=== PATIENT | female | born 1965 | race Caucasian/White ===

== ENCOUNTER 2023-07-20 18:05 | Emergency (ER) | payer OTHER, SELFPAY ==
[2023-07-20 18:14] VITALS: BP 138/94; BMI 34.2
[2023-07-20 18:27] LABS: % Basophils 0.5 % (0-2); % Eosinophils 1.8 % (0-6); % Immature Granulocytes 0.3 % (0-0.5); % Lymphocytes 13.5 % (20.5-51.1); % Monocytes 8.1 % (1.7-9.3); % Neutrophils 75.8 % (42.2-75.2); Absolute Basophils 0.1 10^3/uL (0-0.2); Absolute Eosinophils 0.2 10^3/uL (0-0.7); Absolute Lymphocytes 1.3 10^3/uL (1.2-3.4); Absolute Monocytes 0.8 10^3/uL (0.1-0.6); Absolute Neutrophils 7.2 10^3/uL (1.4-6.5); Hematocrit 39.6 % (37.0-47.0); Hemoglobin 13.3 g/dL (12.0-16.0); Mean Corp Hgb Conc. 33.6 g/dL (33.0-37.0); Mean Corpuscular Hgb 30.3 pg (27.0-31.0); Mean Corpuscular Volume 90.2 fL (81.0-99.0); Mean Platelet Volume 11.4 fL (7.4-10.4); Nucleated Red Blood Cells % 0 %; Platelet Count 207 10^3/uL (130-400); Red Blood Cell Count 4.39 10^6/uL (4.20-5.40); Red Cell Dist. Width 12.9 % (11.5-14.5); White Blood Cell Count 9.5 10^3/uL (4.8-10.8)
[2023-07-20 18:49] LABS: ALT (SGPT) 23 U/L (0-35); AST (SGOT) 31 U/L (14-36); Albumin 4.5 g/dl (3.5-5.0); Alkaline Phosphatase 83 U/L (38-126); Blood Urea Nitrogen 16 mg/dl (7-17); Calcium 9.9 mg/dl (8.4-10.2); Carbon Dioxide 27 mmol/L (22-30); Chloride 106 mmol/L (98-107); Estimated Creatinine Clearance 66 ml/min; Glucose 45 mg/dl (70-99); Potassium 4.3 mmol/L (3.5-5.1); Sodium 137 mmol/L (135-145); Total Bilirubin 0.7 mg/dl (0.2-1.3); Total Protein 6.8 g/dl (6.3-8.2); Troponin I < 0.012 ng/ml; eGFR > 60.00
[2023-07-20 18:53] VITALS: BP 120/88
[2023-07-20 18:58] LABS: Glucose - Point of Care 120 mg/dl (70-99)
--- NOTE | 2023-07-20 18:59 | EDRN ---
glucose rechecked and was 120, pt states she ate pretzels in waiting area when she was waiting.
[2023-07-20 19:43] VITALS: BP 115/85
[2023-07-20 20:00] VITALS: BP 109/78
[2023-07-20 20:00] LABS: Glucose - Point of Care 160 mg/dl (70-99)
--- NOTE | 2023-07-20 21:09 | ED.GENMED ---
History of Present Illness
General
Chief Complaint: Chest Pain
Source: patient
Time Seen by Provider: 07/20/23 19:57
Travel History
Have you had any contact with someone who has COVID-19?: No
Do you have any symptoms of coronavirus? Fever > 100 degrees, chills, cough, shortness of breath, sore throat, loss of taste or smell, muscle aches, or headache?: No
History of Present Illness
History of Present Illness:
58-year-old female presents to the emergency room complaining of palpitations. The triage note states she had left arm pain the patient does not endorse this for me. Currently she is symptom-free. Patient states she had been outside working in
her yard quite a while. She did not feel like it was particularly hot. However at the end of her shoulders she began feeling a car was beating strongly. She did not like it was beating rapidly but rather HPV was quite strong. She did not have
any diaphoresis. She denies shortness of breath. Symptoms persisted about 45 minutes. She in that time she drank some glasses of water and also ate some carrots and fruit. This did not make her feel any better. She decided to come to the
emergency room. While in the emergency room her symptoms seem to go away. At the time my evaluation she is asymptomatic. She has no known history of hypoglycemia. Does not take any medication for diabetes.
Past History
Past History
ED Past Medical History: None
ED Past Surgical History: Orthopedic and Other (lumpectomy)
Social History
Tobacco: Non-smoker
Alcohol: Occasional
Personal:
Living: with family
Employment: Employed ([employer])
Phy Exam
Physical Exam
Physical Exam:
General: Awake, Alert, Oriented X3. No acute distress.
Vitals: unremarkable
Head: Atraumatic
Eyes: Pupils equal, EOMI
Throat: Airway intact, no exudates
Neck: Trachea midline
Lungs: Clear and equal b/l
Heart: Regular rate, no murmurs
Abd: Soft, Nontender, No pulsatile mass
Neuro: Nonfocal
Skin: Warm, dry, no rash
Extremities: pulses equal b/l, no edema
Scores
Heart Score for Chest Pain Patients
STEMI patient?: No
History: Slightly or Non-Suspicious
ECG: Normal
Age: >45 - <65 years
Risk Factors: No Risk Factors
Troponin: </= Normal Limit
Heart Score for Chest Pain Patients: 1
Heart Score Risk: 2.5% MACE over next 6 weeks
Course
Orders/Labs/Results
Orders:
Orders
07/20/23 18:06
Electrocardiogram (*1) Urgent
Reason for Study: Chest Pain
EKG- Treatment ONCE
07/20/23 18:18
Complete Blood Count/With Diff Urgent
Comprehensive Metabolic Panel Urgent
Troponin I Urgent
CXR2 [CR Chest - 2 Views ] Urgent
Comment:
Reason For Exam: chest pain
Abnormal Lab Results
07/20/23 07/20/23 07/20/23
18:18 18:55 19:58
MPV 11.4 H fL
(7.4-10.4)
Absolute Neuts (auto) 7.2 H 10^3/uL
(1.4-6.5)
Absolute Monos (auto) 0.8 H 10^3/uL
(0.1-0.6)
Neutrophils % 75.8 H %
(42.2-75.2)
Lymphocytes % 13.5 L %
(20.5-51.1)
Glucose 45 L* mg/dl
(70-99)
POC Glucose 120 H mg/dl 160 H mg/dl
(70-99) (70-99)
07/20/23 18:18
07/20/23 18:18
Vital Signs
Initial and Last Documented VS:
Initial Vital Signs
Temp Pulse Resp BP Pulse Ox
98 F 84 16 138/94 98
07/20/23 18:14 07/20/23 18:14 07/20/23 18:14 07/20/23 18:14 07/20/23 18:14
Last Documented Vital Signs
Temp Pulse Resp BP Pulse Ox
98 F 84 14 109/78 96
07/20/23 18:14 07/20/23 20:15 07/20/23 20:15 07/20/23 20:00 07/20/23 20:15
MDM/Problems Addressed
Differential Diagnosis Includes:
ACS, PVCs, PACs, sinus tachycardia
MDM/Problems Addressed:
Patient had an episode of a strong heartbeat after spending a bit of time in the yard gardening. She does not feel like she was particularly overheated but nonetheless she began feeling symptoms. Her workup here shows normal sinus rhythm on her
EKG. Her glucose was found to be 45 on the BMP. She had eaten some snacks in the waiting room after the blood was drawn an Accu-Chek that was normal. It is possible to symptoms that she experienced earlier today was related to hypoglycemia
however she does not take any oral hypoglycemics. She does not have diabetes. Patient stable for discharge home. Recommend follow-up with her primary care provider and cardiology as an outpatient.
*Pulse Oximetry
Patient hypoxic: no
*EKG
Interpreted by ED Provider?: Yes
Interpretation: normal
Heart Rate: 86
Rate: normal
Rhythm: sinus
[place]: normal axis
Interval: normal interval
QRS Pattern: normal QRS
Ischemia: no ischemia
*Plumber Gasfitter Interpretation
Rate: normal
Interpretation: normal
Rhythm: sinus
*Critical Care Note
Total Time (30-74mins, 75-104mins- exclusive of procedures): Not Applicable
ED Attending Note
-
Portions of this chart may have been created with voice recognition software.� Occasional wrong word or��sound alike� substitutions may have occurred due to the inherent limitations of voice recognition software.
Discharge Plan
Departure
Patient Disposition: Home (Routine Discharge)
Date of Disposition: 07/20/23
Time of Disposition: 21:10
Patient with high blood pressure during this ER visit?: No
Condition: Good
Discharge Problem:
Palpitations
Instructions: Palpitations ED
Prescriptions:
No Action
cyclobenzaprine 10 MG tablet
10 mg PO BIDPRN PRN (Reason: muscle tightness/spasm) Qty: 20 0RF
Referrals:
Yoli Correa, DO [Family Provider] -
Minerva Cazares DO [Active] -
Interventions
Interventions:
*Risk Screen - Suicide Last Done: 07/20/23 18:14
*General Assessment Last Done: 07/20/23 20:02
*Neglect/Abuse Screening Last Done: 07/20/23 18:14
ED- Fall Risk Assessment Last Done: 07/20/23 18:14
*ED COVID-19 Vaccine History Last Done: 07/20/23 20:02
*Nursing Disposition Last Done: 07/20/23 21:15
ED- Cardiac Assessment Last Done: 07/20/23 20:02
Discharge Date and Time
Discharge Date/Time: 07/20/23 21:15
Print Language: KINYARWANDA
== END 2023-07-20 21:15 | disposition home or self-care (01) ==
LOC: EMR 18:05
PROVIDERS: Emergency Medicine; EMERGENCY PHYSICIAN Emergency Medicine; FAMILY PHYSICIAN Internal Medicine
DX: R00.2 Palpitations (principal); R07.9 Chest pain, unspecified; Z88.6 Allergy status to analgesic agent; Z88.1 Allergy status to other antibiotic agents; Z88.5 Allergy status to narcotic agent; Z88.2 Allergy status to sulfonamides; Z88.8 Allergy status to other drugs, medicaments and biological substances
CPT/HCPCS: 99283; 71046; 80053; 82962; 84484; 85025; 93005

== ENCOUNTER → 2023-10-18 09:06 | Outpatient (REF) | payer OTHER, SELFPAY | LOC: RCS 09:06 | PROVIDERS: ATTENDING PHYSICIAN Internal Medicine Cardiovascular Disease; FAMILY PHYSICIAN Internal Medicine | DX: R06.02 Shortness of breath (principal) | CPT/HCPCS: 93017; 93350 ==

== ENCOUNTER → 2024-10-20 10:19 | Outpatient (REF) | payer OTHER, SELFPAY | LOC: RAD 10:19 | PROVIDERS: ATTENDING PHYSICIAN Obstetrics & Gynecology Gynecology | DX: R10.2 Pelvic and perineal pain (principal) | CPT/HCPCS: 76830; 76856 ==

== ENCOUNTER 2025-01-21 08:41 | Emergency (ER) | payer OTHER, SELFPAY ==
[2025-01-21 08:49] VITALS: BP 113/84
[2025-01-21 09:08] VITALS: BP 128/86
--- NOTE | 2025-01-21 09:11 | ED.GENMED ---
History of Present Illness
General
Chief Complaint: Cardiac Symptoms
Time Seen by Provider: 01/21/25 08:52
History of Present Illness
History of Present Illness:
59-year-old female without significant past medical history presenting to the emergency department for palpitations and dizziness. Patient notes symptoms started about an hour prior to arrival. Patient went to the GI office today. She initially
felt okay and then upon leaving the office started to feel unwell. She started to drive and symptoms worsened so she returned back, went back to the office and they noticed that she was in SVT. They tried vagal maneuvers without relief. Patient
notes that she has had similar symptoms in the past, however reports that there was no abnormality ever detected. Reports history of Holter monitor that was negative. Reports chest pressure, lightheadedness, agitation. No additional symptoms
reported at this time
Past History
Past History
ED Past Medical History: None
ED Past Surgical History: Orthopedic and Other (lumpectomy)
Social History
Tobacco: Non-smoker
Alcohol: Occasional
Personal:
Living: with family
Employment: Employed ([employer])
Phy Exam
Physical Exam
Physical Exam:
General: Well-appearing, no clinical signs of dehydration, nontoxic and in no acute distress
HEENT: protecting airway
Neck: appears supple
CV: Tachycardic, regular rhythm, no evidence of cyanosis
Resp: No accessory muscle use, no increased work of breathing, lungs clear to auscultation bilaterally
Abd: No distention
Extremities: No deformities, no swelling
Neuro: alert, no focal neurologic deficit
: deferred
Rectal: deferred
Psych: Normal affect
Skin: Intact
Course
Orders/Labs/Results
Orders:
Orders
01/21/25 08:47
Electrocardiogram (*1) Urgent
Reason for Study: Bradycardia / Tachycardia
EKG- Treatment ONCE
01/21/25 08:56
Adenosine [Adenocard] 18 mg .ROUTE .STK-MED ONE
01/21/25 08:59
EKG [Electrocardiogram (*1)] Urgent
Reason for Study: Bradycardia / Tachycardia
EKG- Treatment ONCE
01/21/25 09:07
Complete Blood Count/With Diff Urgent
Comprehensive Metabolic Panel Urgent
Abnormal Lab Results
01/21/25
09:07
Hct 47.2 H %
(37.0-47.0)
MCHC 32.6 L g/dL
(33.0-37.0)
MPV 11.7 H fL
(7.4-10.4)
Absolute Monos (auto) 0.7 H 10^3/uL
(0.1-0.6)
Carbon Dioxide 21 L mmol/L
(22-30)
BUN 19 H mg/dl
(7-17)
Glucose 174 H mg/dl
(70-99)
AST 51 H U/L
(14-36)
ALT 39 H U/L
(0-35)
01/21/25 09:07
01/21/25 09:07
Vital Signs
Initial and Last Documented VS:
Initial Vital Signs
Temp Pulse Resp BP
98.9 F 200 24 113/84
01/21/25 08:49 01/21/25 08:49 01/21/25 08:49 01/21/25 08:49
Last Documented Vital Signs
Temp Pulse Resp BP Pulse Ox
98.9 F 88 22 123/88 97
01/21/25 08:49 01/21/25 10:13 01/21/25 08:52 01/21/25 10:00 01/21/25 10:00
MDM/Problems Addressed
MDM/Problems Addressed:
59-year-old female without significant past medical history presenting for palpitations, dizziness, chest pressure which started an hour prior to arrival. Vital signs on arrival significant for tachycardia.
On exam, patient is in no acute distress, however anxious and uncomfortable secondary to her symptoms. Patient noted to be in profound tachycardia, greater than 200 with EKG confirming SVT. Suspect etiology of symptoms. Patient arrives from
outpatient doctor's office, where they also noted SVT, did not break with vagal maneuvers. For this reason, will obtain laboratory analysis and administer adenosine
09:10 - Patient converted after 1 dose of adenosine. EKG confirms sinus rhythm. Patient notes that she has seen Dr. Evans in the past. Will consult cardiology for outpatient follow-up.
10:20 - Labs are unremarkable and patient remained stable. Did discuss with cardiology, recommend Toprol 25 mg daily with subsequent follow-up. At this time feel that she is stable for discharge with close interval cardiac follow-up. Return
precautions discussed and patient verbalized understanding
*Pulse Oximetry
SaO2: 100
Oxygen Mode of Delivery: Room air
Patient hypoxic: no
*EKG
Interpreted by ED Provider?: Yes
EKG Intrepretation Date: 01/21/25
EKG Intrepretation Time: 09:25
Interpretation: abnormal
Comparison EKG: changes noted
Heart Rate: 208
Rate: tachycardiac
Rhythm: SVT
[place]: normal axis
QRS Pattern: normal QRS
Ischemia: non-specific ST changes
*Critical Care Note
Total Time (30-74mins, 75-104mins- exclusive of procedures): 35
comment:
The high probability of a clinically significant, sudden or life threatening deterioration of the cardiac system(s) required my full and direct attention, intervention and personal management. The aggregate critical care time was 35 minutes. This
time is in addition to time spent performing reported procedures but includes the following:
[x] Data Review and interpretation
[x] Patient assessment and monitoring of vital signs
[x] Documentation
[x] Medication orders and management
ED Attending Note
-
Portions of this chart may have been created with voice recognition software.� Occasional wrong word or��sound alike� substitutions may have occurred due to the inherent limitations of voice recognition software.
Discharge Plan
Departure
Patient with high blood pressure during this ER visit?: No
Condition: Good
Discharge Problem:
SVT (supraventricular tachycardia)
Instructions: Supraventricular tachycardia (SVT)
Prescriptions:
No Action
cyclobenzaprine 10 MG tablet
10 mg PO BIDPRN PRN (Reason: muscle tightness/spasm) Qty: 20 0RF
Referrals:
Aroldo Evans MD [Active, Cardiology]
Yoli Correa DO [Family Provider, Internal Medicine]
Activity Restrictions/Additional Instructions:
You were seen in the emergency department for elevated heart rate and palpitations
You were found to have a rhythm called supraventricular tachycardia. The rhythm improved after a medication called adenosine. We recommend that you follow-up with your law clerk.
Return to the emergency department for any worsening of your symptoms, or any development of chest pain, difficulty breathing, abdominal pain with persistent vomiting and inability to tolerate food or liquid by mouth (concern for dehydration),
weakness, headache or confusion, fever greater than 100.4, or any additional symptoms that are concerning to you.
Thank you for choosing [facility].
Interventions
Interventions:
*Risk Screen - Suicide Last Done: 01/21/25 09:16
*General Assessment Last Done: 01/21/25 09:16
*Neglect/Abuse Screening Last Done: 01/21/25 09:16
ED- Pulmonary Assessment Last Done: 01/21/25 09:18
ED- Cardiac Assessment Last Done: 01/21/25 09:18
Discharge Date and Time
Print Language: YAKUT
[2025-01-21 09:16] VITALS: BMI 29.3
[2025-01-21 09:27] LABS: Hematocrit 47.2 % (37.0-47.0); Hemoglobin 15.4 g/dL (12.0-16.0); Mean Corp Hgb Conc. 32.6 g/dL (33.0-37.0); Mean Corpuscular Volume 94.2 fL (81.0-99.0); Nucleated Red Blood Cells % 0 %; Platelet Count 273 10^3/uL (130-400); Red Cell Dist. Width 12.7 % (11.5-14.5)
[2025-01-21 09:52] LABS: ALT (SGPT) 39 U/L (0-35); AST (SGOT) 51 U/L (14-36); Albumin 5.0 g/dl (3.5-5.0); Alkaline Phosphatase 99 U/L (38-126); Blood Urea Nitrogen 19 mg/dl (7-17); Calcium 9.6 mg/dl (8.4-10.2); Carbon Dioxide 21 mmol/L (22-30); Chloride 107 mmol/L (98-107); Estimated Creatinine Clearance 63 ml/min; Glucose 174 mg/dl (70-99); Potassium 4.0 mmol/L (3.5-5.1); Sodium 137 mmol/L (135-145); Total Protein 7.6 g/dl (6.3-8.2); eGFR > 60.00
[2025-01-21 10:00] VITALS: BP 123/88
== END 2025-01-21 10:39 | disposition home or self-care (01) ==
LOC: EMR 08:41
PROVIDERS: EMERGENCY PHYSICIAN Student in an Organized Health Care Education/Training Program; FAMILY PHYSICIAN Internal Medicine
DX: I47.10 Supraventricular tachycardia, unspecified (principal)
CPT/HCPCS: 99291; 80053; 85025; 93005; J0153

== ENCOUNTER 2025-02-26 10:11 | Day surgery (SDC) | payer OTHER, SELFPAY ==
[2025-02-26] VITALS (8 sets, daily range): BP systolic 103–153; BP diastolic 76–90; BMI 27.3
[2025-02-26 10:44] LABS: Hematocrit 39.5 % (37.0-47.0); Hemoglobin 13.5 g/dL (12.0-16.0); Mean Corp Hgb Conc. 34.2 g/dL (33.0-37.0); Mean Corpuscular Volume 89.8 fL (81.0-99.0); Platelet Count 191 10^3/uL (130-400); Red Cell Dist. Width 12.0 % (11.5-14.5)
[2025-02-26 11:25] LABS: ALT (SGPT) 18 U/L (0-35); AST (SGOT) 23 U/L (14-36); Albumin 4.6 g/dl (3.5-5.0); Alkaline Phosphatase 72 U/L (38-126); Blood Urea Nitrogen 14 mg/dl (7-17); Calcium 9.7 mg/dl (8.4-10.2); Carbon Dioxide 29 mmol/L (22-30); Chloride 106 mmol/L (98-107); Estimated Creatinine Clearance 80 ml/min; Glucose 98 mg/dl (70-99); Magnesium 2.0 mg/dl (1.6-2.3); Potassium 3.7 mmol/L (3.5-5.1); Sodium 138 mmol/L (135-145); Total Protein 7.2 g/dl (6.3-8.2); eGFR > 60.00
--- NOTE | 2025-02-26 12:50 | ITS.CL.ABL ---
Asphalt Plant Laborer - Ablation
Ablation
Procedure Report:
ELECTROPHYSIOLOGIC STUDY AND POSSIBLE ABLATION
Procedure Date: February 26, 2025
Primary Care Provider: Dr. Yoli Correa
Primary faith doctor: Dr. Aroldo Evans
INDICATION: Supraventricular tachycardia, palpitations
HISTORY: Symptomatic recurrent supraventricular tachycardia
'Time-out' was called and confirmed.
Presenting rhythm: Sinus rhythm
PROCEDURE:
Ultrasound Guidance with real-time visualization of needle insertion and vessel patency performed by mo for femoral venous Vascular Access.
Under real-time US guidance, the needle was advanced with negative pressure into the vein. The needle was seen entering the vessel lumen with a good return of dark red flow, the syringe was removed, non-pulsatile, dark red blood low was noted and
the wire was passed without difficulty, then the needle was removed. US confirmed the wire was in the vein, not going into an artery,
Images were taken and saved for the patient's permanent record. Imaging findings typical femoral venous anatomy. Direct visualization of needle puncture into the femoral vein was observed and recorded.
Multipolar recording catheters were positioned at the HRA, RVA, His bundle and CS (for left atrial recording/mapping).
Mapping, recording and pacing were performed from these sites.
Baseline measurements were recorded and analyzed. Antegrade and retrograde AV jonhathan Wenckebach CLs were obtained.
Programmed electrical stimulation was performed. Premature extrastimuli were delivered from the HRA, CS and RVA catheters.
Burst atrial pacing was also performed from HRA and LA (CS) sites.
In the baseline state there is evidence of dual AV johnathan physiology and single AV johnathan echoes but no inducible arrhythmia.
Three-dimensional electroanatomical mapping was utilized.
Based on her ECG and the presence of dual AV johnathan physiology and single AV johnathan echoes AV johnathan slow pathway mapping was performed with 4 mm tip irrigated contact sensing catheter map the AV johnathan slow pathway. Of note there is a large funnel
entrance to the coronary sinus ostium. Catheter stability at the targeted site was difficult. A long sheath, Tillman ramp, was utilized to assist in stability. Delivery of RF energy at the proposed target sites failed to induce any junctional
rhythms. After several attempts it was decided to begin isoproterenol infusion and try to induce a clinical arrhythmia.
Isoproterenol infusion was begun and uptitrated. Programmed electrical stimulation on isoproterenol infusion is able to induce narrow QRS complex tachycardia at 350 ms.
Evidence for typical AV Johnathan Reentry as the tachycardia diagnosis included: (1) A concentric midline atrial activation sequence during SVT, (2) ventricular pacing from the RVA showed earliest retrograde atrial activation to be midline, matching
that seen during SVT, (3) Atrial activation during SVT began within the first 70ms of the QRS complex excluding AVRT and making AT unlikely, (4) Initiation of SVT was dependent on a critical AH interval (slow pathway engagement), (5) Ventricular
pacing at a CL 20-30 ms faster than the SVT CL during the SVT demonstrated advancement of the atrial electrogram to the pacing CL repeatedly terminating the SVT.
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 It is not AV reentry tachycardia. It is very unlikely to be an atrial tachycardia.
The INcubes multipolar mapping catheter was positioned through an Agilis sheath and high density three-dimensional electroanatomical mapping was then performed outlining the likely area of the AV johnathan slow pathway which is just slightly
inferior to where the previous lesions were given.
Delivery of RF energy through the irrigated tip catheter at this location resulted in accelerated junctional rhythm with intact VA conduction.
Retrograde junctional - atrial conduction was evaluated during RF application and at no point was VA delay or block observed.
PES stimulation was repeated both in the baseline state and on isoproterenol and there was no evidence of AV johnathan slow pathway. No sustained SVT was induced, a contrast to the pre-ablation situation.
COMPLICATIONS: None
SUMMARY:
Ultrasound guided vascular access.
SVT mapping and ablation
Programmed electrical stimulation during drug infusion
RECOMMENDATIONS:
Observation post ablation and consideration for discharge to home later today.
She will see DERIC Orourke on May 31, 2025 post ablation
She will continue to follow with her primary faith doctor on a routine basis, Dr. Aroldo Evans
Copy to:
Primary Care Provider: Dr. Yoli Correa
Primary faith doctor: Dr. Aroldo Evans
== END 2025-02-26 19:00 | disposition home or self-care (01) ==
LOC: CATH 10:11
PROVIDERS: ATTENDING PHYSICIAN Internal Medicine Cardiovascular Disease; FAMILY PHYSICIAN Internal Medicine; OTHER PHYSICIAN Internal Medicine Cardiovascular Disease
DX: I47.10 Supraventricular tachycardia, unspecified (principal); I45.2 Bifascicular block; Z88.1 Allergy status to other antibiotic agents; Z88.2 Allergy status to sulfonamides; Z88.5 Allergy status to narcotic agent; Z88.6 Allergy status to analgesic agent
CPT/HCPCS: C1732; C1894; C1730; C1893; 80053; 83735; 85027; 93005; 93623; 93653; C1760